=== PATIENT | female | born 1975 | race Caucasian/White ===

== ENCOUNTER 2021-03-06 17:04 | Emergency (ER) | payer OTHER ==
[2021-03-06 17:20] VITALS: BP 129/86; PULSE 96; TEMP 99.5; BMI 27.9
[2021-03-07 23:06] LABS: SARS-CoV-2 NAA Not Detected (Not Detected)
== END 2021-03-06 18:02 | disposition home or self-care (01) ==
LOC: FER 17:04
DX: R53.83 Other fatigue (principal); R50.9 Fever, unspecified; R05.9 Cough, unspecified
CPT/HCPCS: 99283-25; C9803; U0003; U0005